=== PATIENT | female | born 1955 | race Two or more races ===

== ENCOUNTER 2017-11-10 14:38 | Outpatient (CLI) | payer OTHER ==
[~2017-11-10 14:38] MED LIST: CIPRO500 MG PO; HYDROCHLOROTHIA25 MG; METFORMIN HCL500 M1; ORPH100T PO
== END 2017-11-10 15:52 | disposition home or self-care (01) ==
LOC: MAMO-SONO 14:38
DX: R10.2 Pelvic and perineal pain (principal); N60.11 Diffuse cystic mastopathy of right breast; Z12.31 Encounter for screening mammogram for malignant neoplasm of breast

== ENCOUNTER 2018-05-28 10:44 | Outpatient (CLI) | payer OTHER | END 2018-05-31 16:30 | disposition home or self-care (01) | LOC: TOM 10:44 | DX: R91.8 Other nonspecific abnormal finding of lung field (principal); Z87.891 Personal history of nicotine dependence ==

== ENCOUNTER 2018-09-28 23:58 | Emergency (ER) | payer OTHER ==
[~2018-09-28] VITALS: Ht 160 cm; Wt 127.0 kg
== END 2018-09-29 | disposition left against medical advice (07) ==
LOC: ER 23:58
DX: Z53.20 Procedure and treatment not carried out because of patient's decision for unspecified reasons (principal)

== ENCOUNTER 2019-02-28 14:28 | Outpatient (CLI) | payer OTHER | END 2019-02-28 14:40 | disposition home or self-care (01) | LOC: MAMO-SONO 14:28 | DX: N60.11 Diffuse cystic mastopathy of right breast (principal); N60.12 Diffuse cystic mastopathy of left breast; Z12.31 Encounter for screening mammogram for malignant neoplasm of breast ==

== ENCOUNTER 2019-03-18 11:47 | Outpatient (CLI) | payer OTHER | END 2019-03-18 11:56 | disposition home or self-care (01) | LOC: NUCLEAR 11:47 | DX: M81.0 Age-related osteoporosis without current pathological fracture (principal) ==

== ENCOUNTER 2020-03-27 13:01 | Outpatient (CLI) | payer OTHER | END 2020-03-27 13:19 | disposition home or self-care (01) | LOC: MAMO-SONO 13:01 | PROVIDERS: ATTEND Internal Medicine Gastroenterology | DX: Z12.31 Encounter for screening mammogram for malignant neoplasm of breast (principal); R10.2 Pelvic and perineal pain ==

== ENCOUNTER 2021-04-23 13:29 | Outpatient (CLI) | payer OTHER | END 2021-04-23 13:47 | disposition home or self-care (01) | LOC: MAMO-SONO 13:29 | PROVIDERS: ATTEND Obstetrics & Gynecology | DX: N60.11 Diffuse cystic mastopathy of right breast (principal); Z12.31 Encounter for screening mammogram for malignant neoplasm of breast; N60.12 Diffuse cystic mastopathy of left breast; R10.2 Pelvic and perineal pain ==

== ENCOUNTER 2022-03-08 10:36 | Outpatient (CLI) | payer OTHER | END 2022-03-08 10:42 | disposition home or self-care (01) | LOC: RAD 10:36 | PROVIDERS: ATTEND Orthopaedic Surgery Sports Medicine | DX: M17.0 Bilateral primary osteoarthritis of knee (principal) ==

== ENCOUNTER 2023-07-30 14:50 | Outpatient (CLI) | payer OTHER | END 2023-07-30 15:46 | disposition home or self-care (01) | LOC: MAMO-SONO 14:50 | PROVIDERS: ATTEND Obstetrics & Gynecology | DX: N60.12 Diffuse cystic mastopathy of left breast (principal); N60.11 Diffuse cystic mastopathy of right breast; Z12.31 Encounter for screening mammogram for malignant neoplasm of breast ==

== ENCOUNTER → 2023-08-13 15:14 | Outpatient (CLI) | payer OTHER | END | disposition home or self-care (01) | LOC: NUCLEAR 13:15 | PROVIDERS: ATTEND Anesthesiology | DX: M81.0 Age-related osteoporosis without current pathological fracture (principal) ==

== ENCOUNTER 2024-08-08 10:13 | Outpatient (CLI) | payer OTHER | END 2024-08-08 10:21 | disposition home or self-care (01) | LOC: MAMO-SONO 10:13 | PROVIDERS: ATTEND Obstetrics & Gynecology | DX: N60.11 Diffuse cystic mastopathy of right breast (principal); N60.12 Diffuse cystic mastopathy of left breast; Z12.31 Encounter for screening mammogram for malignant neoplasm of breast ==

== ENCOUNTER 2025-09-12 08:18 | Outpatient (CLI) | payer OTHER | END 2025-09-12 08:21 | disposition home or self-care (01) | LOC: MAMO-SONO 08:18 | PROVIDERS: ATTEND Obstetrics & Gynecology | DX: N60.11 Diffuse cystic mastopathy of right breast (principal); N60.12 Diffuse cystic mastopathy of left breast; Z12.31 Encounter for screening mammogram for malignant neoplasm of breast ==